=== PATIENT | female | born 1960 | race Caucasian/White ===

== ENCOUNTER 2017-01-07 16:10 | Emergency (ER) | payer OTHER ==
[~2017-01-07] VITALS: Ht 162.6 cm; Wt 119.2 kg
[~2017-01-07 16:10] MED LIST: ALPRAZOLAM0.25 MG PO; AMBIEN5 M1; COUMADIN,JANTOVE1 MG PO; COUMADIN,JANTOVE6 MG; METOPROLOL TART50 MG PO; NEXIUM40 MG PO; PRINZIDE 20-121 EACH
[2017-01-07 17:23] LABS: HEMATOCRIT 38.2 % (36.0-46.0); MCH 27.5 PG (29.0-34.0); MCHC 32.7 G/DL (30.0-36.0); MCV 84.1 FL (83-99); MEAN PLAT.VOLUME 9.1 uM^3 (9.5-12.4); PLATELET COUNT 240 K/uL (156-360); RBC DIS.WIDTH-CV 14.1 % (11.8-14.6); RBC DIS.WIDTH-SD 43.4 % (39-53); RED BLOOD COUNT 4.54 M/uL (3.80-5.20); WHITE BLOOD COUNT 6.2 K/uL (4.1-10.2)
[2017-01-07 17:32] LABS: INTER. NORMALIZED RATIO 3.7
[2017-01-07 17:59] LABS: PROTHROMBIN TIME 43.1 SEC (10.2-12.9)
[2017-01-07] MEDS ORDERED: ANTIVERT25 MG PO (18:32)
[2017-01-07] MEDS ORDERED: FIORICET 50-301 EACH PO (18:32)
[2017-01-07] MEDS ORDERED: ZOFRAN ODT4 MG PO (18:32)
[2017-01-07 19:02] VITALS: BP 111/67
== END 2017-01-07 19:04 | disposition home or self-care (01) ==
LOC: EME 16:10
PROVIDERS: Physician Assistant
DX: S09.90XA Unspecified injury of head, initial encounter (principal); D68.61 Antiphospholipid syndrome; Z79.01 Long term (current) use of anticoagulants; W22.09XA Striking against other stationary object, initial encounter; Y92.89 Other specified places as the place of occurrence of the external cause; I10 Essential (primary) hypertension; K21.9 Gastro-esophageal reflux disease without esophagitis; Z86.73 Personal history of transient ischemic attack (TIA), and cerebral infarction without residual deficits
CPT/HCPCS: 70450; 85027; 85610; 99281; 99284

== ENCOUNTER → 2017-02-23 | Outpatient (CLI) | payer BC ==
[~2017-02-23] MED LIST changes: +ANTIVERT25 MG PO; +BELVIQ10 MG PO; +CYANOCOBAL1000 MCG/2 IM; +FIORICET 50-301 EACH PO; +LOPRESSOR50 MG PO; -METOPROLOL TART50 MG PO; +OMEPRAZOLE40 M1 PO; +ZESTORETIC 20-1 EAC1 PO; +ZOFRAN ODT4 MG PO
== END | disposition home or self-care (01) ==
LOC: CDC 11:00
DX: Z01.810 Encounter for preprocedural cardiovascular examination (principal); L02.31 Cutaneous abscess of buttock; R00.1 Bradycardia, unspecified
CPT/HCPCS: 93000

== ENCOUNTER 2017-02-26 08:34 | Day surgery (SDC) | payer BC ==
[~2017-02-26] VITALS: Ht 165.1 cm; Wt 116.1 kg
[2017-02-26] MEDS ORDERED: SKELAXIN800 MG PO (09:10)
[2017-02-26 09:14] VITALS: BP 101/57
[2017-02-26 09:26] LABS: PTT 52.7 SEC (25-37)
[2017-02-26 09:36] LABS: INTER. NORMALIZED RATIO 1.4; PROTHROMBIN TIME 15.1 SEC (10.2-12.9)
[2017-02-26 12:15] VITALS: BP 97/67
[2017-02-26 13:07] VITALS: BP 102/70
== END 2017-02-26 13:15 | disposition home or self-care (01) ==
LOC: SDC
PROVIDERS: Surgery
DX: D17.1 Benign lipomatous neoplasm of skin and subcutaneous tissue of trunk (principal); I10 Essential (primary) hypertension; D68.61 Antiphospholipid syndrome; Z86.73 Personal history of transient ischemic attack (TIA), and cerebral infarction without residual deficits; Z79.01 Long term (current) use of anticoagulants
CPT/HCPCS: 85610; 85730; 88304; J0690; J2250; J3010